=== PATIENT | male | born 1945 | race Caucasian/White ===

== ENCOUNTER → 2016-10-30 | Outpatient (CLI) | payer OTHER | LOC: BHFA 13:30 | PROVIDERS: ATTEND Internal Medicine Cardiovascular Disease | DX: I48.91 Unspecified atrial fibrillation (principal) ==

== ENCOUNTER → 2016-11-06 | Outpatient (CLI) | payer OTHER | LOC: BHFA 13:00 | PROVIDERS: ATTEND Internal Medicine Cardiovascular Disease | DX: I48.91 Unspecified atrial fibrillation (principal) ==

== ENCOUNTER 2017-02-01 11:22 | Emergency (ER) | payer OTHER, BC ==
[2017-02-01 11:34] VITALS: O2SAT 94
--- NOTE | 2017-02-01 12:12 | EDPHY ---
H & P Time Seen by Provider: 02/01/17 11:52 HPI/ROS: CHIEF COMPLAINT: Right elbow swelling HISTORY OF PRESENT ILLNESS: This is a 71-year-old male presenting to the emergency department complaining of right elbow swelling onset around 1115. 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 I just noticed all this swelling in my right elbow" denies any other complaints REVIEW OF SYSTEMS: Constitutional: No fever, no chills. Eyes: No discharge. No blurred vision ENT: No sore throat. Cardiovascular: No chest pain, no palpitations. Respiratory: No cough, no shortness of breath. Gastrointestinal: No abdominal pain, no vomiting. Musculoskeletal: No back pain. Right elbow swelling Skin: No rashes. Neurological: No headache. Smoking Status: Former smoker Physical Exam: General Appearance: Alert and no distress. HEENT: Normocephalic atraumatic. Pupils equal and round no injection. Respiratory: Chest is nontender, lungs are clear to auscultation. Cardiac: regular rate and rhythm Musculoskeletal: Neck is supple and nontender. Right elbow swelling, small bruise noted the base of the elbow. No redness, no warmth nontender with full range of motion positive CMS intact Extremities : Right elbow swelling. full range of motion and are nontender. Skin: No rashes or lesions. Constitutional: Initial Vital Signs Temperature (C) 36.4 C 02/01/17 11:32 Heart Rate 85 02/01/17 11:32 Respiratory Rate 18 02/01/17 11:32 Blood Pressure 115/85 H 02/01/17 11:32 O2 Sat (%) 94 02/01/17 11:32 O2 Delivery Mode Room Air Allergies/Adverse Reactions: No Known Allergies Allergy (Verified 10/27/11 10:48) Home Medications: Medication Instructions Recorded Omeprazole [Prilosec 20 mg] 20 mg PO HS 09/16/11 Apixaban [Eliquis] 5 mg PO BID 05/14/16 Ascorbic Acid [Vitamin C 500 mg 2,000 mg PO DAILY 05/14/16 (*)] Calcium Carbonate [Tums 500MG (*)] 500 mg PO DAILY 05/14/16 Cholecalciferol Vit D3 [Vitamin D3 5,000 units PO DAILY 05/14/161999 units tab (OTC)] Herbals/Supplements -Info Only 1 ea PO DAILY 05/14/16 Levothyroxine [Synthroid 88 mcg 88 mcg PO DAILY@0400 05/14/16 (*)] Melatonin 5 mg PO HS 05/14/16 Metoprolol Succinate 25 mg PO DAILY@0400 05/14/16 Propafenone HCl [Rythmol 150mg (*)] 150 mg PO TID@0400,1200,199905/14/16 Psyllium Husk [Metamucil] 2 tsp PO DAILY 05/14/16 Vitamin B Complex [B Complex] 1 each PO DAILY 05/14/16 Medical Decision Making - Diagnostics Imaging Results: Imaging Impressions Elbow X-Ray 02/01/17 12:00 Impression: 1. Soft tissue swelling over the olecranon compatible with bursitis. 2. Mild degenerative change within the elbow joint. ED Course/Re-evaluation: Discussed ED plan of care: X-ray right elbow 1315: Discussed x-ray results with patient more than likely a bursitis. Surya wrap ordered for patient. 1330: Discharge home---> stable, discussed discharge instructions Differential Diagnosis: Other differential diagnosis considered but not limited to olecranon fracture, septic joint, and joint effusion Departure - Departure Disposition: Other Psych, Not [facility] Clinical Impression: Bursitis Qualifiers: Bursitis location: elbow Elbow bursitis location: olecranon bursitis Laterality : right Qualified Code(s): M70.21 - Olecranon bursitis, right elbow Condition: Good Instructions: Elbow Bursitis (ED) Additional Instructions: 1. Keep elbow wrapped with compression Surya bandage 2. Decreased range of motion. No pressure on elbow 3. If at any point time elbow becomes warm red increased pain fever please return to the ER to rule out a septic joint 4. Can also take ibuprofen 600 mg every 6-8 hours as needed Referrals: Keisha Darby MD [Primary Care Provider] - As per Instructions Stand Alone Forms: Work Limited Duty, Work Excuse
[2017-02-01 13:42] VITALS: RESP 16
[2017-02-01 13:43] VITALS: BP 112/78; PULSE 82; TEMP 97.9
== END 2017-02-01 13:43 | disposition home or self-care (01) ==
DX: M70.21 Olecranon bursitis, right elbow (principal); Z79.01 Long term (current) use of anticoagulants; Z87.891 Personal history of nicotine dependence

== ENCOUNTER → 2018-10-26 | Day surgery (SDC) | payer OTHER ==
[~2018-10-26] MED LIST: APIXABAN 5 MG TAB ONE; APIXABAN 5 MG TAB PO ONE; ATROPINE SULFATE 1 MG/10 ML SYR IVP ONE; BENZOCAINE UNIT DOSE SPRAY HURRICAINE MM ONE; LIDOCAINE 2% 100 MG/5 ML SYR ONE; MIDAZOLAM 2 MG/2 ML VIAL IVP ONE; NS 500 ML IV ONE; PROPOFOL 200 MG/20 ML VIAL ONE; SUCCINYLCHOLINE CHLORIDE 200 MG/10 ML SYR IVP ONE; fentaNYL 100 MCG/2 ML INJ IVP ONE
--- NOTE | 2018-10-26 11:56 | PDGENHP ---
History & Physical Chief Complaint: Atrial fibrillation History of Present Illness: Persistent atrial fibrillation Relevant Physical Exam: A&Ox4, no apparent distress, respiratory CTA, irregularly irregular rhythm, regular rate. Cardiorespiratory Assessment: Proceed with FARIDA and DCCV as planned for today
[2018-10-26 12:05] LABS: INR 1.2 (0.83-1.16); PROTIME(PATIENT) 14.7 SEC (12.0-15.0)
--- NOTE | 2018-10-26 12:23 | PDTEE1 ---
FARIDA Cardioversion Procedure Procedure: electrical cardioversion, transesophageal echo Indications: atrial fibrillation Consent: signed and in chart Anticoagulation: eliquis Procedural Details: Pads were placed in anterior-posterior position. FARIDA probe was advanced and standard images obtained. There is no evidence of left atrial or left atrial appendage thrombus. Synchronized cardioversion attempt #1: 200J Results: normal sinus rhythm Conclusions: successful FARIDA cardioversion Patient Problems: Problems Problem Status Onset Atrial fibrillation and flutter Acute
--- NOTE | 2018-10-26 12:28 | PDANEPAE ---
ANE History of Present Illness a-flutter for FARIDA/CV ANE Past Medical History - Cardiovascular History Hx Arrhythmias: Yes Hx Coronary Artery / Peripheral Vascular Disease: Yes - Pulmonary History Hx Oxygen in Use at Home: No Hx Sleep Apnea: No - Endocrine History Hx Diabetes: No Hypothyroid: Yes - Chronic Pain History Chronic Pain: No ANE Review of Systems Review of systems is: negative Review of Systems: - Exercise capacity Exercise capacity: >=4 METS ANE Patient History - Allergies Allergies/Adverse Reactions: No Known Allergies Allergy (Verified 10/27/11 10:48) - Home Medications Home medications: home medication list seen and reviewed Home Medications: Omeprazole [Prilosec 20 mg] 20 mg PO HS 09/16/11 [Last Taken 05/13/16] Apixaban [Eliquis] 5 mg PO BID 05/14/16 [Last Taken 05/11/16] Ascorbic Acid [Vitamin C 500 mg (*)] 2,000 mg PO DAILY 05/14/16 [Last Taken ] Calcium Carbonate [Tums 500MG (*)] 500 mg PO DAILY 05/14/16 [Last Taken 05/13/16 ] Cholecalciferol Vit D3 [Vitamin D3 2000 units tab (OTC)] 5,000 units PO DAILY [Last Taken 05/13/16] Herbals/Supplements -Info Only 1 ea PO DAILY 05/14/16 [Last Taken Unknown] Levothyroxine [Synthroid 88 mcg (*)] 88 mcg PO DAILY@0400 05/14/16 [Last Taken 05/13/16] Melatonin 5 mg PO HS 05/14/16 [Last Taken 05/13/16] Metoprolol Succinate 25 mg PO DAILY@0400 05/14/16 [Last Taken 05/13/16] Propafenone HCl [Rythmol 150mg (*)] 150 mg PO TID@0400,1200,2000 05/14/16 [Last Taken 05/08/16] Psyllium Husk [Metamucil] 2 tsp PO DAILY 05/14/16 [Last Taken 05/13/16] Vitamin B Complex [B Complex] 1 each PO DAILY 05/14/16 [Last Taken 05/13/16] - NPO status NPO Status: no food or drink >8 hours (meds with sips) - Anes Hx Anes Hx: no prior problems - Smoking Hx Smoking Status: Former smoker - Alcohol Use Alcohol Use: None - Family Anes Hx Family Anes Hx: none ANE Labs/Vital Signs - Labs Result Diagrams: 10/26/18 11:50 - Vital Signs Height: 177.8 cm Weight: 90.718 kg ANE Physical Exam - Airway Neck exam: FROM Mallampati Score: Class 2 Mouth exam: normal dental/mouth exam - Pulmonary Pulmonary: no respiratory distress - Cardiovascular Cardiovascular: regular rate and rhythym - ASA Status ASA Status: III ANE Anesthesia Plan Anesthesia Plan: GA with mask Total IV Anesthesia: Yes
--- NOTE | 2018-10-26 12:31 | POSTANESTH ---
Post Anesthetic Evaluation Cardiovascular Status: Normal, Stable Respiratory Status: Normal, Stable, Tx Decrease in SpO2 Level of Consciousness/Mental Status: Can Participate in Eval Pain Control: Adequate, Prn Tx Ordered Nausea/Vomiting Control: Adequate, Prn Tx Ordered Complications Possibly Related to Anesthesia: None Noted
--- NOTE | 2018-10-26 17:17 | ECHO ---
[email or web address] [address] [address] Main: [phone] Echocardiography Examination Transesophageal Name: TASH AGUSTIN MR#: [id number] Study Date: 10/26/2018 Study Time: 11:59 AM Date of : 1945 Age: 72 year(s) Height: ( ) Weight: ( ) BSA: Gender: Male Examination: FARIDA Contrast: Image Quality: Adequate Rhythm: Heart Rate: BP: / Indication: Eval MEENA pre cardioversion Procedure Staff Referring Physician: Legislative Analyst: Joceline Hernández [facility] Reading Physician: Angel Luis West MD Requesting Provider: Ordering Physician: Anegl Luis West MD Indication: Eval MEENA pre cardioversion Normal LV function. Mild MR. No thrombus in MEENA. Acute complication: None Findings Left Ventricle: Normal global systolic left ventricular function. The EF is visually estimated to be 60 %. Left Atrium Appendage: Normal PW-Doppler flow pattern. Good color flow doppler in the left atrial appendage. No thrombus is identified. IAS: An agitated saline study was performed and was negative for intracardiac shunting. Mitral Valve: Mitral valve appears structurally normal. Mild mitral regurgitation. Aortic Valve: Aortic leaflets are structurally normal. No significant aortic valve regurgitation. Tricuspid Valve: Tricuspid valve leaflets are structurally normal. No significant tricuspid regurgitation. Pulmonic Valve: Pulmonic leaflets are structurally normal. Exam Details Procedure Ordered: FARIDA Procedure Status: Routine study Patient: TASH AGUSTIN Study Date: 10/26/2018 Page 1 of 2 11:59 AM Image Quality: Adequate Consent: Risks, alternatives of procedure explained to patient, informed consent obtained Probe Insertion: Attending jewelsmith Facility Location: Cardiac Echo 1 (No Signature Object) Patient: TASH AGUSTIN Study Date: 10/26/2018 Page 2 of 2 11:59 AM [id number]
--- NOTE | 2018-10-26 17:30 | CPEKG ---
Test Reason : OPEN Blood Pressure : / mmHG Vent. Rate : 096 BPM Atrial Rate : 000 BPM P-R Int : 062 ms QRS Dur : 083 ms QT Int : 347 ms P-R-T Axes : 000 022 -02 degrees QTc Int : 439 ms Atrial fibrillation Abnormal R-wave progression, early transition Borderline T abnormalities, inferior leads Confirmed by Fransisco Chin ([id number]) on 10/26/2018 5:30:12 PM Referred By: Angel Luis West Confirmed By:Fransisco Chin
--- NOTE | 2018-10-26 17:31 | CPEKG ---
Test Reason : OPEN Blood Pressure : / mmHG Vent. Rate : 070 BPM Atrial Rate : 070 BPM P-R Int : 190 ms QRS Dur : 082 ms QT Int : 381 ms P-R-T Axes : 058 022 -05 degrees QTc Int : 412 ms Sinus rhythm Borderline T abnormalities, inferior leads Confirmed by Fransisco Chin ([id number]) on 10/26/2018 5:31:09 PM Referred By: Angel Luis West Confirmed By:Fransisco Chin
== END | disposition home or self-care (01) ==
LOC: FIMAGING 11:12
PROVIDERS: ATTEND Internal Medicine Cardiovascular Disease
PROC: 5A2204Z Restoration of Cardiac Rhythm, Single (ICD-10-PCS; principal; 2018-10-26)
PROC: B245ZZ4 Ultrasonography of Left Heart, Transesophageal (ICD-10-PCS; principal; 2018-10-26)
DX: I48.1 Persistent atrial fibrillation (principal); I25.10 Atherosclerotic heart disease of native coronary artery without angina pectoris; E78.5 Hyperlipidemia, unspecified; E03.9 Hypothyroidism, unspecified; M10.072 Idiopathic gout, left ankle and foot; N18.9 Chronic kidney disease, unspecified
CPT/HCPCS: J0330; J0461; J2001; J2704